=== PATIENT | female | born 1995 ===

== ENCOUNTER 2017-05-22 00:53 | Emergency (ER) | payer BC ==
[2017-05-22 03:09] VITALS: BP 113/64
--- NOTE | 2017-05-22 05:03 | Emergency Department Report ---
- General Chief complaint: Skin/Abscess/Foreign Body Stated complaint: GRAPEFRUIT SIZED LUMP ON INNER LEFT THIGH Time Seen by Provider: 05/22/17 04:55 Source: patient, family Mode of arrival: Ambulatory Limitations: No Limitations - History of Present Illness Initial comments: Patient here reports that she has a lump on her left thigh and states that it's painful started 3 days ago. She has not had similar episode in the past. Tetanus vaccine is less than 5 years. Patient cannot remember being bitten by insect or she says she has never shave that area or in contact with anything that would cause her to have abscess. Pain is 9 on the 10 worse with movement and touch better with resting. Denies any fever or chills. Denies any nausea or vomiting. Denies any radiation of pain. MD complaint: abscess/boil Onset/Timin -: days(s) Tetanus Up to Date: yes Location: LLE (left thigh) Severity: severe Severity scale (0 -10): 9 Quality: other (throbbing) Consistency: constant Improves with: immobilization, rest Worsens with: palpation, movement Context: other (abscess to left thigh) Associated symptoms: athralgias Treatments Prior to Arrival: none - Related Data Previous Rx's Medication Instructions Recorded Last Taken Type HYDROcodone/ACETAMINOPHEN [[place] 1 each PO Q6H PRN 3 Days #12 tablet 05/22/17 Unknown Rx 5-325 Tablet] Ibuprofen [Motrin] 600 mg PO Q8H PRN 5 Days #15 tablet 05/22/17 Unknown Rx Sulfamethoxazole/Trimethoprim 1 each PO BID 10 Days #20 tablet 05/22/17 Unknown Rx [Bactrim DS TAB] Allergies Allergy/AdvReac Type Severity Reaction Status Date / Time No Known Allergies Allergy Verified 05/22/17 05:06 Abscess Boil HPI - HPI Chief Complaint: Skin/Abscess/Foreign Body Stated Complaint: GRAPEFRUIT SIZED LUMP ON INNER LEFT THIGH Time Seen by Provider: 05/22/17 04:55 Home Medications: Previous Rx's Medication Instructions Recorded Last Taken Type HYDROcodone/ACETAMINOPHEN [[place] 1 each PO Q6H PRN 3 Days #12 tablet 05/22/17 Unknown Rx 5-325 Tablet] Ibuprofen [Motrin] 600 mg PO Q8H PRN 5 Days #15 tablet 05/22/17 Unknown Rx Sulfamethoxazole/Trimethoprim 1 each PO BID 10 Days #20 tablet 05/22/17 Unknown Rx [Bactrim DS TAB] Allergies/Adverse Reactions: Allergies Allergy/AdvReac Type Severity Reaction Status Date / Time No Known Allergies Allergy Verified 05/22/17 05:06 ED Review of Systems ROS: Stated complaint: GRAPEFRUIT SIZED LUMP ON INNER LEFT THIGH Other details as noted in HPI Comment: All other systems reviewed and negative Constitutional: no symptoms reported ENT: denies: throat pain Respiratory: no symptoms reported Cardiovascular: denies: chest pain, palpitations, dyspnea on exertion, orthopnea , edema, syncope, paroxysmal nocturnal dyspnea Gastrointestinal: denies: abdominal pain, nausea, vomiting, diarrhea, constipation, hematemesis, melena, hematochezia Genitourinary: denies: urgency, dysuria, frequency, hematuria, discharge Musculoskeletal: arthralgia. denies: back pain, joint swelling, myalgia Skin: other (abscess to left thigh) Neurological: denies: headache, weakness, numbness, paresthesias, confusion, abnormal gait, vertigo ED Past Medical Hx - Past Medical History Previous Medical History?: No - Surgical History Past Surgical History?: Yes Additional Surgical History: biopsy on left breast - Family History Family history: hypertension - Social History Smoking Status: Never Smoker Substance Use Type: None - Medications Home Medications: Home Medications Medication Instructions Recorded Confirmed Last Taken Type HYDROcodone/ACETAMINOPHEN [[place] 1 each PO Q6H PRN 3 Days #12 tablet 05/22/17 Unknown Rx 5-325 Tablet] Ibuprofen [Motrin] 600 mg PO Q8H PRN 5 Days #15 tablet 05/22/17 Unknown Rx Sulfamethoxazole/Trimethoprim 1 each PO BID 10 Days #20 tablet 05/22/17 Unknown Rx [Bactrim DS TAB] ED Physical Exam - General Limitations: No Limitations General appearance: alert, in no apparent distress - Head Head exam: Present: atraumatic, normocephalic, normal inspection - Eye Eye exam: Present: normal appearance, PERRL, EOMI Pupils: Present: normal accommodation - ENT ENT exam: Present: normal exam, normal orophraynx, mucous membranes moist - Neck Neck exam: Present: normal inspection, full ROM, other (no C-spine tenderness). Absent: tenderness, meningismus, lymphadenopathy, thyromegaly - Respiratory Respiratory exam: Present: normal lung sounds bilaterally. Absent: respiratory distress, wheezes, rales, rhonchi, stridor, chest wall tenderness, accessory muscle use, decreased breath sounds, prolonged expiratory - Cardiovascular Cardiovascular Exam: Present: regular rate, normal rhythm, normal heart sounds. Absent: systolic murmur, diastolic murmur - GI/Abdominal GI/Abdominal exam: Present: soft, normal bowel sounds. Absent: distended, tenderness, guarding, rebound, rigid, organomegaly, mass, bruit, pulsatile mass , hernia - Extremities Exam Extremities exam: Present: normal inspection, full ROM, tenderness (left thigh posteriorly, proximal), normal capillary refill, other (no clubbing, cyanosis or edema. +2 pulses to all extremities. No neurovascular compromise. No bony abnormalities or joint deformities. No crepitus or effusion. No laceration. Patient with abscess to left proximal posterior thigh that is tender to palpate. Full range of motion in all extremities .+5 movement in all extremities). Absent: pedal edema, joint swelling, calf tenderness - Back Exam Back exam: Present: normal inspection, full ROM, other (patient able to ambulate without any difficulties). Absent: tenderness, CVA tenderness (R), CVA tenderness (L), muscle spasm, paraspinal tenderness, vertebral tenderness, rash noted - Neurological Exam Neurological exam: Present: alert, oriented X3, normal gait, reflexes normal. Absent: motor sensory deficit - Psychiatric Psychiatric exam: Present: normal affect, normal mood - Skin Skin exam: Present: warm, dry, erythema, other (Abscess to proximal posterior left thigh) - Expanded Skin Exam Expanded Type of lesion: Present: abscess Distribution of rash: LLE (proximal posterior left thigh) Description of rash: Present: size (9 x 10 cm of erythema and 2 x 3 cm of induration that is fluctuant with open into Center of induration. No fluctuance around cellulitic site. Cellulitic site with swelling.), tenderness , erythematous, swelling, fluctuant (at 2 x 3 cm indurated area), indurated ( indurated to entire area which involve 9 x 10 cm erythema with swelling). Absent: blisters, confluent, bullous, petechial, purpuic, urticarial, crusting, discharge ED Course Vital Signs 05/22/17 03:05 Temperature 98.2 F Pulse Rate 71 Respiratory 17 Rate Blood Pressure 113/64 O2 Sat by Pulse 99 Oximetry - Reevaluation(s) Reevaluation #1: 05/22/17 05:50 Patient given clindamycin 600 mg IM empirically for abscess and cellulitis, Percocet 5/325 2 tablets by mouth pre incision and drainage. 05/22/17 08:07 Reevaluation #2: 05/22/17 07:00 Abscess to left posterior thigh incision and drained. Please refer to procedure note for detail. Patient tolerated procedure well. Her pain is a 2 out of 10. - I & D Left Posterior Proximal Thigh Type of Procedure: Complex Site: left proximal posterior thigh. Blade Size: 11 I & D Procedure: betadine prep, sterile drapes applied, sterile dressing applied , gauze wick placed Progress: Patient with cellulitis and abscess to left thigh. She is unaware of cause. Under sterile procedure, and incision and drainage procedure done. Area cleansed with iodine and normal saline .Area numbed with 0.5% Marcaine 3 mL injected. Local anesthesia achieved and the 1 cm incision made to fluctuated area. Copious amount of serous sighing drainage without any odor came from site. Approximately 10 mL. She is still with some indurated area without any swollen and erythema. Area packed with iodoform packing and sterile gauze dressing placed inside. Tetanus vaccine is up-to-date. The patient that she needs to take antibiotic as prescribed and return in 3 days for evaluation and possible removal and within that 3 days she needs to follow discharge instruction on daily wound care and ensure that packing does not fall out. I told her she needs to apply warm compresses to affected area with gauze in place and avoid getting heat directly to her skin. She voiced understanding and she tolerated procedure well ED Medical Decision Making - Medical Decision Making ED course: Sent with abscess and cellulitis to her posterior proximal left thigh and she is unaware of cause. Area with cellulitic area surrounded indurated fluctuant area to mid left erythema with open into Center. Abscess incision and drained. Please refer to procedure note for detail. Patient given Percocet 5/325 mg 2 tablets prior to procedure. He said her tetanus shot is less than 5 years. I instructed patient that she'll need to be an antibiotic and I will give her pain medications help with pain. Also given clindamycin 6 mg IM empirically for abscess and cellulitis. I also instructed her she is to apply warm compresses on top of gauze and not to skin 3-4 times a day to facilitate drainage. Patient discharged home in stable condition and voices understanding of discharge instruction, follow-up plans, medication. Patient discharged home in stable condition with her boyfriend and she was given prescription for Bactrim DS, [place] and Motrin. Patient does have a primary care physician and I told her that she'll need to follow up with her primary care physician in 5 days and also she needs to return to the emergency room in 3 days for reevaluation. Critical care attestation.: If time is entered above; I have spent that time in minutes in the direct care of this critically ill patient, excluding procedure time. ED Disposition Clinical Impression: Abscess or cellulitis of thigh, Arthralgia of left thigh, Encounter for incision and drainage procedure Disposition: LEFT WITHOUT TREATMENT Is pt being admited?: No Does the pt Need Aspirin: No Condition: Stable Instructions: Cellulitis (ED), Abscess Incision and Drainage (ED), Acute Wound Care (ED) Additional Instructions: Take antibiotic as prescribed We have increased her fluid intake to 2-3 L of water per day and this will help with wound healing in Follow-up with your primary care physician in 5 days Please return to emergency room in 3 days after starting antibiotic for evaluation and possible removal of packing. Keep affected area clean and dry. Please do not drive or operate heavy machinery while taking and [place] as this medication causes drowsiness Apply warm compresses to affected area with gauze dressing in place for 3-4 times a day to facilitate soft and drainage of abscess Followed discharge instruction on acute wound care . Please return to emergency room if you develop increasing redness, streaking, fever, difficulty moving in and the left forearm and increase in pain. Prescriptions: HYDROcodone/ACETAMINOPHEN [[place] 5-325 Tablet] 1 each PO Q6H PRN 3 Days #12 tablet PRN Reason: Pain , Severe (7-10) Ibuprofen [Motrin] 600 mg PO Q8H PRN 5 Days #15 tablet PRN Reason: Pain Sulfamethoxazole/Trimethoprim [Bactrim DS TAB] 1 each PO BID 10 Days #20 tablet Referrals: please return, to emergency room [Other] - 05/25/17 (Please return to emergency room in 3 days for reevaluation of packing and possible removal.) PRIMARY CARE, [Primary Care Provider] - 05/27/17 Forms: Accompanied Note, Work/School Release Form(ED)
[2017-05-22] MEDS ORDERED: PERCOCET 5/325 PO ONE (05:04)
[2017-05-22] MEDS ORDERED: CLEOCIN IM ONE (05:04)
[2017-05-22] MEDS ORDERED: MARCAINE 0.5% INFILTRATI NR (06:00)
== END 2017-05-22 07:47 | disposition home or self-care (01) ==
LOC: ED 00:53
DX: L02.416 Cutaneous abscess of left lower limb (principal); L03.116 Cellulitis of left lower limb
CPT/HCPCS: 96372